=== PATIENT | male | born 1995 | race African-American/Black ===

== ENCOUNTER 2024-04-16 14:37 | Emergency (ER) | payer MEDICAID, OTHER ==
[~2024-04-16] VITALS: Ht 172.7 cm; Wt 84.0 kg
[~2024-04-16 14:37] MED LIST: AMPH5TAB2; IBUP600T39 OR; [UNRECOGNIZED DRUG - CODE]
[2024-04-16 15:19] VITALS: BP 146/105; PULSE 90; RESP 16; TEMP 98.6; O2SAT 98
--- NOTE | 2024-04-16 15:38 | ED.PDOC ---
Back pain HPI HPI Comments A 28 YEAR OLD MALE PRESENTS TO THE ED VIA EMS WITH COMPLAINT OF LEFT NECK PAIN X TODAY AFTER WAKING UP FROM [facility]. PT STATES HE FELL ASLEEP WITH THREE PILLOWS AND WAS UNABLE TO TURN NECK TO THE LEFT SIDE AFTER WAKING UP. CURRENT PAIN LEVEL 9/10. PATIENT DENIES FEVER, CHILLS, SHORTNESS OF BREATH, CHEST PAIN, ABDOMINAL PAIN, NAUSEA, VOMITING, HEADACHE, OR OTHER COMPLAINTS. NO OTHER SYMPTOMS OR MODIFYING FACTORS AT THIS TIME. PATIENT IS ALERT, ORIENTED X 4, AND HAS STEADY GAIT. Chief Complaint: Neck Pain Time Seen by MD: 15:30 Primary Care Provider: unknown Reviewed Notes: Nurses Notes, Configuration Engineer Notes, Medications, Allergies Allergies: Coded Allergies: NO KNOWN ALLERGIES (Unverified , 02/02/11) Home Meds Active Scripts Baclofen (Baclofen) 10 Mg Tab, 10 MG PO BID, #20 TAB Prov:LUKE PISANO 04/16/24 Ibuprofen (Ibuprofen) 800 Mg Tab, 1 TAB PO TID, #30 TAB Prov:LUKE PISANO 04/16/24 Reported Medications Ibuprofen (Ibu) 600 Mg Tab, 600 MG OR 02/02/11 Desmopressin Acetate (Ddavp) 0.2 Mg Tab, DAILY 02/02/11 Amphetamine/Dextroamphetamine (Adderall) 5 Mg Tab, DAILY 02/02/11 Information Source: Patient, Emergency Med Personnel Mode of Arrival: EMS Brought in by: EMS Timing: Hours Duration: Since onset Location of Back pain: Other (LEFT SIDE NECK ) Severity: Mild Prehospital treatment: None Quality: Aching Onset: Twisting Circumstance: Other History of: None Modifying Factors: Movement, Twisting Associated signs and symptoms: None Past Medical History PAST MEDICAL HISTORY: Denies Surgical History: Denies all surgeries Family History Family History: No family hx of Stroke Social History Smoker: Non-Smoker Alcohol: Denies ETOH Use Drugs: Denies Drug Use Lives In: Home Constitutional: denies: chills, diaphoresis, fatigue, fever, malaise, sweats, weakness, others EENTM: denies: blurred vision, double vision, ear bleeding, ear discharge, ear drainage, ear pain, ear ringing, eye pain, eye redness, hearing loss, mouth pain, mouth swelling, nasal discharge, nose bleeding, nose congestion, nose pain, photophobia, tearing, throat pain, throat swelling, voice changes, others Respiratory: denies: cough, hemoptysis, orthopnea, SOB at rest, shortness of breath, SOB with excertion, stridor, wheezing, others Cardiovascular: denies: chest pain, dizzy spells, diaphoresis, Dyspnea on exertion, edema, irregular heart beat, left arm pain, lightheadedness, palpitations, PND, syncope, others Gastrointestinal: denies: abdomen distended, abdominal pain, blood streaked bowels, constipated, diarrhea, dysphagia, difficulty swallowing, hematemesis, melena, nausea, poor appetite, poor fluid intake, rectal bleeding, rectal pain, vomiting, others Genitourinary: denies: burning, dysuria, flank pain, frequency, hematuria, incontinence, penile discharge, penile sore, pain, testicle pain, testicle swelling, urgency, others Neurological: denies: dizziness, fainting, headache, left sided numbness, left sided weakness, numbness, paresthesia, pre-existing deficit, right sided numbness, right sided weakness, seizure, speech problems, tingling, tremors, weakness, others Musculoskeletal: reports: muscle pain, neck pain; denies: back pain, gout, joint pain, joint swelling, muscle stiffness, others Integumetry: denies: bruises, change in color, change in hair/nails, dryness, laceration, lesions, lumps, rash, wounds, others Allergic/Immunocompromised: denies: Difficulty Healing, Frequent Infections, Hives, Itching, others Hematologic/Lymphatic: denies: anemia, blood clots, easy bleeding, easy bruising, swollen glands, others Endocrine: denies: excessive hunger, excessive sweating, excessive thirst, excessive urination, flushing, intolerance to cold, intolerance to heat, unexplained weight gain, unexplained weight loss, others Psychiatric: denies: anxiety, bipolar disorder, depression, hopeless, panic disorder, schizophrenia, sleepless, suicidal, others All Other Systems: Reviewed and Negative Physical Exam General Appearance: No Apparent Distress, Normal HEENT: Normal ENT Inspection, PERRL/EOMI, Pharynx Normal, TMs Normal Neck: Full Range of Motion, Normal Inspection, Supple, Tender Lateral (AND MUSCLE SPASM ON LEFT SIDE NECK, NO BONY TENDERNESS, SWELLING AND DEFORMITY. ) Respiratory: Chest Non-Tender, Lungs Clear, No Accessory Muscle Use, No Respiratory Distress, Normal Breath Sounds Cardiovascular: No Edema, No JVD, No Murmur, No Gallop, Normal Peripheral Pulses, Regular Rate/Rhythm Breast Exam: Deferred Gastrointestinal: No Organomegaly, Non Tender, No Pulsatile Mass, Normal Bowel Sounds, Soft Genitalia: Deferred Pelvic: Deferred Rectal: Deferred Extremities: No calf tenderness, Normal capillary refill, Normal inspection, Normal range of motion, Non-tender, No pedal edema Musculoskeletal : Apperance: Normal Neurologic: Alert, jewel flat surfacer II-XII nml as Tested, No Motor Deficits, Normal Affect, Normal Mood, No Sensory Deficits Cerebellar Function: Normal Reflexes: Normal Skin: Dry, Normal Color, Warm Peripheral Pulses: 2+ carotid (R), 2+ carotid (L) Lymphatic: No Adenopathy Was a procedure done? Was a procedure done?: No Back Pain Differential Dx Differential Diagnosis: Musculoskeletal Pain, Other (TORTICOLLITIS) X-Ray, Labs, Meds, VS Vital Signs Date Time Temp Pulse Resp B/P (MAP) Pulse Ox O2 Delivery O2 Flow Rate FiO2 04/16/24 15:19 98.6 90 16 146/105 (119) 98 98.6 04/16/24 15:19 90 16 98 Room Air 04/16/24 14:48 98.6 90 16 146/105 (119) 98 Current Medications Medications (Trade) Dose Ordered Sig/Osmin Route Start Time Stop Time Status Last Admin Ketorolac Tromethamine (Toradol Injection) 60 mg ONCE ONCE IM 04/16/24 15:45 04/16/24 15:46 DC 04/16/24 15:40 Acetaminophen/ Hydrocodone Bitart ([place] 5/325MG Tab) 1 tab ONCE ONCE PO 04/16/24 15:45 04/16/24 15:46 DC 04/16/24 15:39 X-Ray, Labs, Meds, VS Comment COURSE: EXTERNAL MEDICAL RECORDS REVIEWED: [NONE] INDEPENDENT HISTORIANS: [NONE] SOCIAL DETERMINANTS OF HEALTH: [NONE] LABS ORDERED: NONE REVIEWED AND INTERPRETED RESULTS: NONE IMAGING ORDERED: NONE TREATMENTS ORDERED: NORCO 5 1TAB PO, KETOROLAC 60MG IM AND HEATING PACK PROCEDURES PERFORMED: NONE CRITICAL CARE TIME: NONE I HAVE DISCUSSED THE PATIENT WITH THE ATTENDING PHYSICIAN DR. FIGUEROA AND HE AGREES WITH THE PATIENT'S PLAN OF CARE AND DISPOSITION. GIVEN THE HISTORY AND PRESENT ILLNESS OF THE PATIENT, AFTER REVIEWING LABS, IMAGING, AND COURSE OF TREATMENT ADMINISTERED DURING THEIR ED VISIT, THERE IS LOW SUSPICION FOR RED FLAG FINDINGS. BASED ON HISTORY OF PRESENT ILLNESS, AND PHYSICAL EXAM, PATIENT WILL BE DISCHARGED HOME. DISCUSSED PLAN FOR DISCHARGE HOME WITH RX. MEDICATION WARNINGS GIVEN. SHARED DECISION MAKING: DISCUSSED WITH PATIENT THAT THEIR WORKUP WAS NORMAL. PATIENT INSTRUCTED TO FOLLOW UP WITH PRIMARY CARE PROVIDER IN 1-2 DAYS FOR RE- EVALUATION OF SYMPTOMS. PATIENT VERBALIZES UNDERSTANDING TO RETURN TO ED FOR NEW OR WORSENING SYMPTOMS OR IF FOLLOW UP WITH PCP CANNOT BE OBTAINED. PATIENT FEELS COMFORTABLE GOING HOME AT THIS TIME. ALL QUESTIONS ADDRESSED TIME OF DISCHARGE. Time of 1ST Reevaluation: 16:22 Reevaluation 1ST: Improved Patient Education/Counseling: Diagnosis, Treatment, Prognosis, Need For Follow Up Family Education/Counseling: Diagnosis, Treatment, No Family Present Medical Screening: No EMC Exist At This Time Departure 1 Departure Time of Disposition: 16:22 Impression: Primary Impression: Torticollis, acute Disposition: 01 HOME / SELF CARE / HOMELESS Condition: Stable Additional Instructions: FOLLOW-UP WITH PCP IN 1 TO 2 DAYS. TAKE MEDICATIONS PRESCRIBED. RETURN TO ED FOR ANY NEW OR WORSENING SYMPTOMS. e-Prescriptions Baclofen (Baclofen) 10 Mg Tab 10 MG PO BID, #20 TAB Prov: LUKE PISANO 04/16/24 Ibuprofen (Ibuprofen) 800 Mg Tab 1 TAB PO TID, #30 TAB Prov: LUKE PISANO 04/16/24 Discharged With: Self, Relative Critical Care Note Critical Care Time?: No Stability Stability form required: No Heart Score Heart Score: Heart Score Response (Comments) Value History N/A 0 EKG N/A 0 Age N/A 0 Risk Factors N/A 0 Troponin N/A 0 Total 0 I personally scribed for LUKE PISANO ([email or web address]) on 04/16/24 at 15:38. Electronically submitted by Shelley Emerson ([email or web address]). LUKE PISANO Apr 16, 2024 15:38
[2024-04-16] MEDS: HYDROcodone-ACET 5/325MG TAB PO ONE (15:39)
[2024-04-16] MEDS: KETOROLAC TROMETH 60MG/2ML VIAL IM ONE (15:40)
[2024-04-16] MEDS ORDERED: IBUP-1456 PO (16:20)
[2024-04-16] MEDS ORDERED: BACL10TA PO (16:20)
== END 2024-04-16 16:25 | disposition home or self-care (01) ==
LOC: ER 14:37 → EDBD 14:37 → ER 16:25
DX: M43.6 Torticollis (principal); Z79.1 Long term (current) use of non-steroidal anti-inflammatories (NSAID); Z79.899 Other long term (current) drug therapy
CPT/HCPCS: 96372; 99283; J1885